=== PATIENT | female | born 1935 | race Caucasian/White ===

== ENCOUNTER 2017-01-25 08:57 | Emergency (ER) | payer MEDICARE, OTHER ==
[2017-01-25 09:30] LABS: BASOPHIL 0.2 % (0-2); EOSINOPHIL 1.3 % (0-7); HCT 39.8 % (37.0-47.0); HGB 13.6 g/dl (12.5-16.0); LYMPHOCYTE 11.1 % (15-48); MCH 30.6 pg (25.0-31.0); MCHC 34.2 g/dL (32.0-36.0); MCV 89.4 fL (78.0-100.0); MONOCYTE 10.1 % (0-12); MPV 8.8 fL (6.0-9.5); NEUTROPHIL 77.3 % (41-80); PLT 231 K/uL (150-400); RBC 4.45 M/uL (4.20-5.40); RDW 14.3 % (11.5-14.0); WBC 11.1 K/uL (4.0-10.5)
[2017-01-25 09:40] LABS: INR 1.02 (0.9-1.2); PTT 24.8 SECONDS (23.2-31.4)
[2017-01-25 09:47] LABS: ALBUMIN 4.3 g/dL (3.4-4.8); BILIRUBIN - TOTAL 0.4 mg/dL (0.1-1.0); GLOBULIN (CALCULATION) 2.5 g/dL (2.2-4.2); MAGNESIUM 1.78 mg/dL (1.40-2.10); POTASSIUM 4.4 mmol/L (3.5-5.1); TOTAL PROTEIN 6.8 g/dL (6.4-8.3)
[2017-01-25 09:50] LABS: CKMB 2.32 ng/mL (0.97-4.94); MYOGLOBIN 49 ng/mL (26-65); PRO-BNP 108 pg/mL (0-450); TROPONIN T < 0.010 ng/mL
== END 2017-01-25 12:18 | disposition home or self-care (01) ==
LOC: FER 08:57
PROVIDERS: Emergency Medicine
DX: K21.9 Gastro-esophageal reflux disease without esophagitis (principal); R07.2 Precordial pain; R60.0 Localized edema; M54.2 Cervicalgia; I51.9 Heart disease, unspecified; E11.9 Type 2 diabetes mellitus without complications; Z88.5 Allergy status to narcotic agent; Z79.84 Long term (current) use of oral hypoglycemic drugs; Z79.01 Long term (current) use of anticoagulants; Z79.899 Other long term (current) drug therapy; Z95.5 Presence of coronary angioplasty implant and graft
CPT/HCPCS: 36415; 71010; 80053; 82550; 82553; 83735; 83874; 83880; 84484; 85025; 85610; 85730; 93005; J2405